=== PATIENT | male | born 2000 | race African-American/Black ===

== ENCOUNTER 2022-07-22 15:37 | Emergency (ER) | payer SELFPAY ==
[2022-07-22] MEDS ORDERED: NA CHLORIDE 0.9% 1,000 ML ONE (16:23)
[2022-07-22] MEDS ORDERED: ONDANSETRON 4 MG/2 ML VIAL ONE (16:23)
[2022-07-22] MEDS ORDERED: PANTOPRAZOLE 40 MG INJ ONE (16:23)
[2022-07-22] MEDS ORDERED: DIPHENHYDRAMINE 50 MG/ML VIAL ONE (16:23)
[2022-07-22 16:33] LABS: Absolute Lymphocytes (CBC) 0.9 K/uL (0.7-4.9); Hematocrit 44.6 % (39.6-49.0); Lymphocytes % 19.4 % (15.3-44.8); MCV 85.1 fL (80-100); MPV 9.5 fL (7.6-11.3); RBC Red Blood Cell Count 5.24 M/uL (4.33-5.43)
[2022-07-22 16:50] LABS: Albumin 3.6 g/dL (3.4-5.0); Bilirubin Total 0.5 mg/dL (0.2-1.0); Potassium 3.3 mEq/L (3.5-5.1); Protein, Total 7.3 g/dL (6.4-8.2)
[2022-07-22 16:55] LABS: Blood Morphology Comment NOT SEEN (NOT SEEN); Platelet Estimate DECR; White Blood Cell Scan OK (OK)
[2022-07-22 16:56] LABS: SARS-CoV-2 Antigen Rapid Res Negative (Negative)
[2022-07-22] MEDS ORDERED: POTASSIUM 25 MEQ EFFERV TAB ONE (17:11)
--- NOTE | 2022-07-22 17:36 | EDPHYS ---
Physician Documentation [facility] Name: Cira Richter Age: 21 yrs Sex: Male : 2000 Arrival Date: 07/22/2022 Time: 15:37 Bed 16 Private MD: ED Physician Abebe Garcia HPI: 07/22 16:15 This 21 yrs old Black Male presents to ER via Ambulatory with complaints of cp Nausea/Vomiting. 16:15 The patient presents to the emergency department with nausea, that is mild, vomiting, cp that is intermittent, diarrhea, that is intermittent. Onset: The symptoms/episode began/occurred 3 day(s) ago. Associated signs and symptoms: Pertinent positives: anorexia, fever, Pertinent negatives: abdominal pain, constipation, dysuria, GI bleeding. Severity of symptoms: in the emergency department the symptoms are unchanged despite home interventions. Historical: - Allergies: 16:00 No Known Allergies; ll1 - Home Meds: 16:00 None [Active]; ll1 - PMHx: 16:00 LYMPHOPENIA; ll1 - Immunization history:: Adult Immunizations up to date. - Social history:: Smoking status: Patient denies any tobacco usage or history of. ROS: 16:20 Constitutional: Positive for body aches, Negative for fever, poor PO intake. cp 16:20 Eyes: Negative for injury, pain, redness, and discharge. cp 16:20 ENT: Negative for drainage from ear(s), ear pain, sore throat, difficulty swallowing, difficulty handling secretions. 16:20 Cardiovascular: Negative for chest pain. 16:20 Respiratory: Negative for cough, shortness of breath, wheezing. 16:20 Abdomen/GI: Positive for nausea, vomiting, and diarrhea, anorexia, Negative for abdominal pain, black/tarry stool, rectal bleeding. 16:20 Neuro: Negative for altered mental status, dizziness, headache, weakness. 16:20 All other systems are negative. Exam: 16:25 Constitutional: The patient appears in no acute distress, alert, awake, non-toxic, well cp developed, well nourished. 16:25 Head/Face: Normocephalic, atraumatic. cp 16:25 Eyes: Periorbital structures: appear normal, Conjunctiva: normal, no exudate, no injection, Sclera: no appreciated abnormality, Lids and lashes: appear normal. 16:25 ENT: External ear(s): are unremarkable, Nose: is normal, Mouth: Lips: Oral mucosa: pink and intact, moist, Posterior pharynx: is normal, airway is patent, no erythema, no exudate. 16:25 Chest/axilla: Inspection: normal. 16:25 Cardiovascular: Rate: normal, Rhythm: regular. 16:25 Respiratory: the patient does not display signs of respiratory distress, Respirations: normal, no use of accessory muscles, no retractions, labored breathing, is not present, Breath sounds: are clear throughout, no decreased breath sounds, no stridor, no wheezing. 16:25 Abdomen/GI: Inspection: abdomen appears normal, Bowel sounds: active, all quadrants, Palpation: abdomen is soft and non-tender, in all quadrants. 16:25 Back: pain, is absent, ROM is normal. Vital Signs: 15:59 BP 107 / 74; Pulse 80; Resp 16; Temp 99.3; Pulse Ox 98% ; Weight 61.23 kg; Height 6 ft. ll1 1 in. ; 16:11 BP 112 / 75; Pulse 78; Resp 16; Pulse Ox 100% ; db 17:00 BP 107 / 72; Pulse 73; Resp 18; Pulse Ox 100% on R/A; db 17:30 BP 111 / 84; Pulse 82; Resp 18; Pulse Ox 100% on R/A; db 15:59 Body Mass Index 17.81 (61.23 kg, 185.42 cm) ll1 MDM: 16:06 Patient medically screened. cp 16:45 Differential diagnosis: gastritis, cholecystitis, pancreatitis, appendicitis, cp diverticulitis, viral gastroenteritis, gastroenteritis. 17:35 Data reviewed: vital signs, nurses notes, lab test result(s). cp 17:35 Consideration of Admission/Observation Escalation of care including cp admission/observation considered. I considered the following discharge prescriptions or medication management in the emergency department Medications were administered in the Emergency Department. See MAR. Counseling: I had a detailed discussion with the patient and/or guardian regarding: the historical points, exam findings, and any diagnostic results supporting the discharge/admit diagnosis, lab results, to return to the emergency department if symptoms worsen or persist or if there are any questions or concerns that arise at home. Response to treatment: the patient's symptoms have markedly improved after treatment, and as a result, I will discharge patient. 07/22 16:10 Order name: CBC with Diff; Complete Time: 17:16 cp 07/22 17:16 Interpretation: Normal except: PLT 94; MN% 12.5. cp 07/22 16:10 Order name: CMP; Complete Time: 16:51 cp 07/22 17:17 Interpretation: Normal except: NA 133; K 3.3; GFR 87; CA 8.2; GLOB 3.7; A/G 1.0. cp 07/22 16:10 Order name: Lipase; Complete Time: 16:51 cp 07/22 16:10 Order name: SARS RAPID; Complete Time: 17:16 cp 07/22 16:10 Order name: Influenza Screen (a \T\ B); Complete Time: 17:16 cp 07/22 16:36 Order name: CBC Smear Scan; Complete Time: 17:16 EDMS 07/22 16:10 Order name: IV Saline Lock; Complete Time: 16:30 cp 07/22 16:10 Order name: Labs collected and sent; Complete Time: 16:30 cp Administered Medications: 16:20 Drug: NS 0.9% IV 1000 ml Route: IV; Rate: 1 bolus; Site: left forearm; nj1 17:50 Follow up: Response: No adverse reaction; IV Status: Completed infusion; IV Intake: db 1000ml 16:20 Drug: Ondansetron IVP 4 mg Route: IVP; Site: left forearm; nj1 17:50 Follow up: Response: No adverse reaction db 16:22 Drug: diphenhydrAMINE IVP 25 mg Route: IVP; Site: left forearm; nj1 17:50 Follow up: Response: No adverse reaction db 16:23 Drug: Pantoprazole IVP 40 mg Route: IVP; Site: left forearm; nj1 17:50 Follow up: Response: No adverse reaction db 17:08 Drug: Potassium PO Effervescent Tablet 50 mEq Route: PO; db 17:49 Follow up: Response: No adverse reaction db Disposition: 19:49 Co-signature as Attending Physician, Abebe FERRARI was immediately available on-site ms3 in the Emergency Department for consultation in the care of the patient. Disposition Summary: 07/22/22 17:35 Discharge Ordered Location: Home cp Problem: new cp Symptoms: have improved cp Condition: Stable cp Diagnosis - Nausea with vomiting, unspecified cp - Diarrhea, unspecified cp Followup: cp - With: Private Physician - When: 1 - 2 days - Reason: Worsening of condition Discharge Instructions: - Discharge Summary Sheet cp - Food Choices to Help Relieve Diarrhea, Adult cp - Diarrhea, Adult cp - Nausea and Vomiting, Adult cp Forms: - Medication Reconciliation Form cp - Thank You Letter cp - Antibiotic Education cp - Prescription Opioid Use cp Prescriptions: - Protonix 40 mg Oral Tablet - take 1 tablet by ORAL route once daily; 30 tablet; Refills: 0, Product cp Selection Permitted - Zofran 4 mg Oral Tablet - take 1 tablet by ORAL route every 12 hours As needed; 20 tablet; Refills: 0, cp Product Selection Permitted Signatures: Dispatcher [employer] EDMS Leo Candelario PA PA Sandee Evans RN RN ll1 Abebe Garcia DO DO ms3 Tammi May RN RN db Lauren Bess RN RN nj1
--- NOTE | 2022-07-22 17:36 | ER ---
Nurse's Notes [facility] Name: Cira Richter Age: 21 yrs Sex: Male : 2000 Arrival Date: 07/22/2022 Time: 15:37 Bed 16 Private MD: Diagnosis: Nausea with vomiting, unspecified;Diarrhea, unspecified Presentation: 07/22 15:59 Chief complaint: Patient states: 3 DAYS FEVER, ANOREXIA AND HEMATEMESIS. Coronavirus ll1 screen: At this time, the client does not indicate any symptoms associated with coronavirus-19. Ebola Screen: No symptoms or risks identified at this time. Initial Sepsis Screen: Does the patient meet any 2 criteria? No. Patient's initial sepsis screen is negative. Does the patient have a suspected source of infection? No. Patient's initial sepsis screen is negative. Risk Assessment: Do you want to hurt yourself or someone else? Patient reports no desire to harm self or others. Onset of symptoms is unknown. 15:59 Method Of Arrival: Ambulatory ll1 15:59 Acuity: PATRICE 3 ll1 Triage Assessment: 17:00 General: Appears in no apparent distress. General: Behavior is calm, cooperative. GI: db Reports diarrhea, nausea, vomiting. Historical: - Allergies: 16:00 No Known Allergies; ll1 - Home Meds: 16:00 None [Active]; ll1 - PMHx: 16:00 LYMPHOPENIA; ll1 - Immunization history:: Adult Immunizations up to date. - Social history:: Smoking status: Patient denies any tobacco usage or history of. Screenin:21 [facility] ED Fall Risk Assessment (Adult) History of falling in the last 3 months, db including since admission No falls in past 3 months (0 pts) Confusion or Disorientation No (0 pts) Intoxicated or Sedated No (0 pts) Impaired Gait No (0 pts) Mobility Assist Device Used No (0 pt) Altered Elimination No (0 pt) Score/Fall Risk Level 0 - 2 = Low Risk Oriented to surroundings, Maintained a safe environment. Abuse screen: Denies threats or abuse. Denies injuries from another. Nutritional screening: No deficits noted. Tuberculosis screening: No symptoms or risk factors identified. Assessment: 16:20 Reassessment: Patient appears in no apparent distress at this time. Patient and/or db family updated on plan of care and expected duration. Pain level reassessed. Patient is alert, oriented x 3, equal unlabored respirations, skin warm/dry/pink. abd pain N/V. General: Appears in no apparent distress. comfortable, Behavior is calm, cooperative. Pain: Complains of pain in abdomen. Neuro: Level of Consciousness is awake, alert, obeys commands, Oriented to person, place, time, situation. GI: Abdomen is flat, non-distended. 17:48 Reassessment: Patient appears in no apparent distress at this time. Patient and/or db family updated on plan of care and expected duration. Pain level reassessed. Patient is alert, oriented x 3, equal unlabored respirations, skin warm/dry/pink. Reassessment: Patient states feeling better. Patient states symptoms have improved. General: Appears in no apparent distress. comfortable, Behavior is calm, cooperative. Vital Signs: 15:59 BP 107 / 74; Pulse 80; Resp 16; Temp 99.3; Pulse Ox 98% ; Weight 61.23 kg; Height 6 ft. ll1 1 in. ; 16:11 BP 112 / 75; Pulse 78; Resp 16; Pulse Ox 100% ; db 17:00 BP 107 / 72; Pulse 73; Resp 18; Pulse Ox 100% on R/A; db 17:30 BP 111 / 84; Pulse 82; Resp 18; Pulse Ox 100% on R/A; db 15:59 Body Mass Index 17.81 (61.23 kg, 185.42 cm) ll1 ED Course: 15:45 Patient arrived in ED. rg4 15:47 Leo Candelario PA is PHCP. cp 15:47 Abebe Garcia DO is Attending Physician. cp 16:00 Triage completed. ll1 16:00 Arm band placed on. ll1 16:20 Tammi May, RN is Primary Nurse. db 16:20 Inserted saline lock: 22 gauge in left forearm, using aseptic technique. Blood nj1 collected. 16:21 Patient has correct armband on for positive identification. Bed in low position. Call db light in reach. Side rails up X 1. Pulse ox on. NIBP on. 17:48 No provider procedures requiring assistance completed. IV discontinued, intact, db bleeding controlled, No redness/swelling at site. Administered Medications: 16:20 Drug: NS 0.9% IV 1000 ml Route: IV; Rate: 1 bolus; Site: left forearm; nj1 17:50 Follow up: Response: No adverse reaction; IV Status: Completed infusion; IV Intake: db 1000ml 16:20 Drug: Ondansetron IVP 4 mg Route: IVP; Site: left forearm; nj1 17:50 Follow up: Response: No adverse reaction db 16:22 Drug: diphenhydrAMINE IVP 25 mg Route: IVP; Site: left forearm; nj1 17:50 Follow up: Response: No adverse reaction db 16:23 Drug: Pantoprazole IVP 40 mg Route: IVP; Site: left forearm; nj1 17:50 Follow up: Response: No adverse reaction db 17:08 Drug: Potassium PO Effervescent Tablet 50 mEq Route: PO; db 17:49 Follow up: Response: No adverse reaction db Medication: 17:48 VIS not applicable for this client. db Intake: 17:50 IV: 1000ml; Total: 1000ml. db Outcome: 17:35 Discharge ordered by MD. cp 17:48 Discharged to home ambulatory, with friend. db 17:48 Condition: stable 17:48 Discharge instructions given to patient, Instructed on discharge instructions, follow up and referral plans. Prescriptions given X 2. 17:51 Patient left the ED. db Signatures: Leo Candelario PA PA cp Garcia, Rubi rg4 Sandee Mann RN RN ll1 Tammi May, RN RN db Lauren Bess, ANA RN nj1
[2022-07-22 18:58] VITALS: TEMP 99.3
[2022-07-22 19:00] VITALS: O2SAT 100
[2022-07-22 19:03] VITALS: BP 111/84
== END 2022-07-22 17:51 | disposition home or self-care (01) ==
LOC: ER 15:37
DX: R11.2 Nausea with vomiting, unspecified (principal); R19.7 Diarrhea, unspecified; Z20.822 Contact with and (suspected) exposure to COVID-19
CPT/HCPCS: 36415; 80053; 83690; 85025; 87804; 87811; 96361; 96374; 96375; 99284; C9113; J1200; J2405; J7030